=== PATIENT | male | born 1955 | race Caucasian/White ===

== ENCOUNTER → 2019-02-18 | Outpatient (CLI) | payer BC ==
--- NOTE | 2019-02-19 12:00 | ECHOF ---
Referral Reason:I51.7 Cardiomegaly MEASUREMENTS -------- HEIGHT: 180.3 cm WEIGHT: 113.4 kg BP: 127/92 RVIDd: 3.6 cm (< 3.3) IVSd: 1.3 cm (0.6 - 1.1) LVIDd: 3.9 cm (3.9 - 5.3) LVPWd: 1.2 cm (0.6 - 1.1) IVSs: 1.9 cm LVIDs: 2.7 cm LVPWs: 2.0 cm LA Diam: 3.6 cm (2.7 - 3.8) LAESV Index (A-L): 17.62 ml/m Ao Diam: 3.7 cm (2.0 - 3.7) AV Cusp: 2.4 cm (1.5 - 2.6) MV EXCURSION: 15.228 mm (> 18.000) MV EF SLOPE: 41 mm/s (70 - 150) EPSS: 0.4 cm MV E Ismael: 0.67 m/s MV DecT: 326 ms MV A Ismael: 0.76 m/s MV E/A Ratio: 0.88 FINDINGS -------- Sinus rhythm. This was a technically adequate study. The left ventricular size is normal. There is mild concentric left ventricular hypertrophy. Overa ll left ventricular systolic function is normal with, an EF between 55 - 60 %. The right ventricle is mildly enlarged. Normal LA size by volume 22+/-6 ml/m2. The right atrial size is normal. Interatrial and interventricular septum intact. There is mild aortic valve sclerosis. The mitral valve is normal. No mitral regurgitation. The tricuspid valve appears structurally normal. No regurgitation noted The pulmonic valve was not well visualized. There is no pulmonic regurgitation present. The aortic root size is normal. Normal inferior vena cava with normal inspiratory collapse consistent with estimated right atrial pre ssure of 5 mmHg. There is no pericardial effusion. CONCLUSIONS -------- 1. Sinus rhythm. 2. This was a technically adequate study. 3. The left ventricular size is normal. 4. There is mild concentric left ventricular hypertrophy. 5. Overall left ventricular systolic function is normal with, an EF between 55 - 60 %. 6. The right ventricle is mildly enlarged. 7. Normal LA size by volume 22+/-6 ml/m2. 8. There is mild aortic valve sclerosis. 9. The mitral valve is normal. 10. The tricuspid valve appears structurally normal. 11. The pulmonic valve was not well visualized. 12. The aortic root size is normal. 13. Normal inferior vena cava with normal inspiratory collapse consistent with estimated right atrial pressure of 5 mmHg. 14. There is no pericardial effusion. RECRUITING SPECIALIST: Sammi Chung RDCS
== END | disposition home or self-care (01) ==
LOC: RADECHMAIN 14:48
PROVIDERS: ATTEND Family Medicine
DX: I06.0 Rheumatic aortic stenosis (principal)
CPT/HCPCS: 93306

== ENCOUNTER → 2019-03-06 | Outpatient (CLI) | payer BC ==
--- NOTE | 2019-03-06 08:40 | CT ---
EXAMINATION TYPE: CT angio chest DATE OF EXAM: 03/06/2019 COMPARISON: None HISTORY: 63-year-old male with abnormal CXR, thoracic aortic aneurysm without rupture. TECHNIQUE: Contiguous axial scanning of the chest performed without and with IV Contrast, patient inj ected with 100 mL of Isovue 370. Coronal/sagittal MIP reconstructions performed. 3-D reconstructions generated on a dedicated workstation. CT DLP: 1386.6 mGycm Automated exposure control for dose reduction was used. FINDINGS: Heart normal size without pericardial effusion. Tiny focus of nondependent air within the right ventr icle likely introduced during peripheral line placement. Aortic root mildly ectatic at 3.6 cm. Ascending aorta is mildly aneurysmal at 4.0 cm. Minimal atherosclerotic arch calcifications. Variant direct takeoff of the left vertebral artery directly from the aortic arch. The remainder of the thoracic aorta is normal caliber. Noncontrast series shows no evidence for acute or intramural hematoma. No evidence for aortic dissection. No thoracic lymphadenopathy by CT size criteria. Suspect some pleural-parenchymal scarring along the posteromedial right lower lobe adjacent to promin ent endplate spurs. 5 mm peripheral left lower lobe pulmonary nodule, axial image 40. No consolidatio n or pleural effusion. Visualized upper abdomen shows no gross abnormality. Bones: Bridging anterior endplate spondylosis mid to lower thoracic spine compatible with DISH. IMPRESSION: 1. ECTATIC AORTIC ROOT AT 3.6 CM IN MILD ANEURYSM ASCENDING AORTA 4.0 CM. 2. INCIDENTAL VARIANT DIRECT TAKEOFF OF THE LEFT VERTEBRAL ARTERY DIRECTLY FROM THE AORTIC ARCH. 3. A NONSPECIFIC 5 MM LEFT LOWER LOBE PULMONARY NODULE. 6-[address] FOLLOW-UP CT CHEST RECOMMENDED TO REASSESS.
== END | disposition home or self-care (01) ==
LOC: RADCTMAIN 07:09
PROVIDERS: ATTEND Internal Medicine Interventional Cardiology
DX: I71.2 Thoracic aortic aneurysm, without rupture (principal); R91.1 Solitary pulmonary nodule
CPT/HCPCS: 71275; Q9967